=== PATIENT | female | born 1955 ===

== ENCOUNTER 2025-03-29 07:30 | Outpatient (CLI) | payer MEDICARE, MEDICAID ==
[2025-03-29] VITALS (7 sets, daily range): BP systolic 77–142; BP diastolic 41–91; PULSE 63–94
--- NOTE | 2025-03-29 18:17 | CARDIOLOGY REPORT ---
DATE OF SERVICE: 03/29/2025 DICTATING PHYSICIAN: DANTE Paz MD CARDIAC TILT TABLE REPORT DATE OF PROCEDURE: 03/29/2025 AGE: 69 years. PRIMARY PHYSICIAN: Kranthi Contreras MD INTERPRETING PHYSICIAN: DANTE Paz MD INDICATIONS: The patient is a 69-year-old female with episodes of dizziness. This study was done to evaluate for cardiodepressor type of syncope. DESCRIPTION OF PROCEDURE: Routine tilt table protocol was followed. In supine resting condition, the patient's heart rate was 71 per minute and blood pressure was 130/69. At the beginning of the tilt table, the patient's heart rate was 94 per minute and blood pressure was 109/79. About 2.5 minutes into 70-degree tilt, the patient became very dizzy. The patient complained, eventually passed out, and her heart rate was 63 with a blood pressure of 77/47. In supine recovery condition, the patient's heart rate was 66 per minute with a blood pressure of 133/78. The patient recovered immediately. IMPRESSION: A 69-year-old female. Cardiac tilt table findings are strongly positive for cardiodepressor type of syncope. The patient's heart rate dropped from 71 to 63 and blood pressure dropped from 130/69 to 77/47. Recommend clinical correlation. DANTE Paz MD TID: [id number] RECEIPT: [id number] /[id number]
== END 2025-03-29 23:59 | disposition home or self-care (01) ==
LOC: CARD DIAG 07:30
PROVIDERS: ATTEND Internal Medicine
DX: R42 Dizziness and giddiness (principal); R55 Syncope and collapse
CPT/HCPCS: 93660